=== PATIENT | female | born 1950 | race Caucasian/White ===

== ENCOUNTER 2018-08-07 08:35 | Inpatient (IN) | payer MEDICARE, OTHER ==
[~2018-08-07] VITALS: Ht 167.6 cm; Wt 58.1 kg
[2018-08-07] VITALS (35 sets, daily range): BP systolic 69–204; BP diastolic 37–101
[2018-08-07] MEDS ORDERED: NITROGLYCERIN 0.4 MG/TAB BOTTLE ONE (08:38)
--- NOTE | 2018-08-07 08:39 | NUR ---
KAREL 80 FROM SNF, D/T SOB, 6 SPRAYS NITRO GIVEN BY EMS, BS 28, D10 INFUSED, PT AWAKE, RESPONSIVE, SOB NOED W USE OF ACCESSORY MUSCLES. BILAT CRACKLES. TO ER BED 5, HOOKED TO BULKING MACHINE OPERATOR, DR RIVAS AT BEDSIDE, RT AT BEDSIDE.
[2018-08-07] MEDS ORDERED: ALBUTEROL FS 2.5 MG/3 ML VIAL.NEB ONE (08:42)
[2018-08-07] MEDS ORDERED: methylPREDNISolone SOD SUCC 125 MG/2ML VIAL ONE (08:43)
[2018-08-07] MEDS ORDERED: NTG 50 MG/D5W250 ML BOTTL 250 ML IV ONE ×2 (08:54→09:00)
[2018-08-07 08:58] LABS: BASOPHILS # (AUTO) 0.1 /CMM (0.0-0.2); BASOPHILS % (AUTO) 0.9 % (0.0-2.0); EOSINOPHILS % (AUTO) 2.6 % (0.0-6.0); HEMATOCRIT 33 % (33-45); HEMOGLOBIN 10.4 g/dL (11.5-14.8); LYMPHOCYTES # (AUTO) 2.8 /CMM (0.8-4.8); LYMPHOCYTES % (AUTO) 23.3 % (20.0-44.0); MEAN CORPUSCULAR HGB CONC 32 g/dl (31.0-36.0); MEAN CORPUSCULAR VOLUME 95 fL (82-100); MONOCYTES # (AUTO) 1.1 /CMM (0.1-1.30); MONOCYTES % (AUTO) 9.2 % (2.0-12.0); NEUTROPHILS # (AUTO) 7.7 /CMM (1.8-8.9); PLATELET COUNT (AUTO) 260 /CMM (150-450); RED BLOOD CELL COUNT(AUTO) 3.46 MIL/uL (4.0-5.2)
[2018-08-07] MEDS ORDERED: ALBUTEROL FS 2.5 MG/3 ML VIAL.NEB NEB ONE (09:00)
[2018-08-07] MEDS ORDERED: methylPREDNISolone SOD SUCC 125 MG/2ML VIAL IV ONE (09:00)
[2018-08-07] MEDS ORDERED: NITROGLYCERIN 0.4 MG/TAB BOTTLE SL ONE ×2 (09:00)
[2018-08-07] MEDS ORDERED: MORPHINE SULFATE INJ 4 MG/ML DISP.SYRIN ONE (09:02)
[2018-08-07] MEDS ORDERED: ONDANSETRON HCL/PF 4 MG/2 ML VIAL ONE (09:02)
--- NOTE | 2018-08-07 09:05 | NUR ---
RADIOLOGY AT BEDSIDE FOR XRAY.
[2018-08-07 09:07] LABS: CALCIUM, SERUM 8.4 mg/dL (8.5-10.1); CREATININE 4.5 mg/dL (0.6-1.3); POTASSIUM 4.3 mmol/L (3.5-5.1)
[2018-08-07 09:10] LABS: ABG BASE EXCESS -1.8 mmol/L; ABG PH 7.395 (7.350-7.450); COHb 0.6 % (0.5-1.5); MetHb 0.4 % (0.0-1.5); SITE, ABG Right Radial; VENT MODE, BG BIPAP 18/5 R16
[2018-08-07 09:20] LABS: ALBUMIN 2.6 g/dL (3.4-5.0); BILIRUBIN,DIRECT 0.1 mg/dL (0.0-0.2); BILIRUBIN,TOTAL 0.4 mg/dL (0.2-1.0); TOTAL PROTEIN, SERUM 5.9 g/dL (6.4-8.2)
[2018-08-07] MEDS ORDERED: MORPHINE SULFATE INJ 2 MG/ML DISP.SYRIN IV ONE (09:30)
[2018-08-07] MEDS ORDERED: ONDANSETRON HCL/PF - ER 4 MG/2 ML VIAL IV ONE (09:30)
--- NOTE | 2018-08-07 10:14 | NUR ---
CALLED [facility] ITS [facility]
[2018-08-07] MEDS ORDERED: CRAN500T PO (10:22)
[2018-08-07] MEDS ORDERED: SUCR1TAB PO (10:22)
[2018-08-07] MEDS ORDERED: FERR325T23 PO (10:22)
[2018-08-07] MEDS ORDERED: PANT40TA2 PO (10:22)
[2018-08-07] MEDS ORDERED: HYDR100T27 PO (10:22)
[2018-08-07] MEDS ORDERED: ASPI-1169 PO (10:22)
[2018-08-07] MEDS ORDERED: FOLI0.4T2 PO (10:22)
[2018-08-07] MEDS ORDERED: LOSA100T31 PO (10:22)
[2018-08-07] MEDS ORDERED: HYDR-4384 PO (10:22)
[2018-08-07] MEDS ORDERED: CARV25TA PO (10:22)
[2018-08-07] MEDS ORDERED: ATOR40TA PO (10:22)
[2018-08-07] MEDS ORDERED: BISA10SU61 RC (10:23)
[2018-08-07] MEDS ORDERED: MAGN400O6 PO (10:23)
[2018-08-07] MEDS ORDERED: ACET325T53 PO (10:23)
[2018-08-07] MEDS ORDERED: SENN-168 PO (10:23)
[2018-08-07] MEDS ORDERED: NA P133E RC (10:23)
[2018-08-07] MEDS ORDERED: FUROSEMIDE 40 MG/4 ML VIAL IV ONE (10:30)
[2018-08-07] MEDS ORDERED: FUROSEMIDE 20 MG/2 ML VIAL ONE (10:36)
[2018-08-07] MEDS ORDERED: FUROSEMIDE 40 MG/4 ML VIAL ONE (10:36)
--- NOTE | 2018-08-07 10:40 | NUR ---
PATIENT WILL GO TO ICU 252.
--- NOTE | 2018-08-07 11:02 | NUR ---
REPORT GIVEN TO INGRIS RIVERA OF ICU DEPT
--- NOTE | 2018-08-07 11:20 | NUR ---
REPORT RECEIVED FROM SHUBHAM RIVERA FROM ER; RECEIVED VIA [employer] Training[employer] ON NONREBRETHAER MASK; SWITCHED RIGHT AWAY TO BIPAP/FACEMASK BY RT 13/11 RATE OF 12 AT 50%; ON NTG DRIP; TRANSFERRED TO ICU; ORIENTED TO ICU ; USE OF CALL LIGHT, SPEAKS MOSTLY ANGOLAN AND SOME MAURITIAN WORDS
[2018-08-07] MEDS ORDERED: ZOLPIDEM TARTRATE 5 MG TABLET PO PRN (12:00)
[2018-08-07] MEDS ORDERED: MAGNESIUM HYDROXIDE 30 ML UDC PO PRN ×2 (12:00→14:00)
[2018-08-07] MEDS ORDERED: Z GUARD REMEDY 2 OZ OINT TP PRN (12:00)
[2018-08-07] MEDS ORDERED: ONDANSETRON HCL/PF 4 MG/2 ML VIAL IVP PRN (12:00)
--- NOTE | 2018-08-07 12:16 | NUR ---
RIGHT HAND P. IV MEDICAL RESIDENT; NO VISIBLE TRAGET VEINS FOR PERIPHERAL LINE INSERTION; MIDLINE IV ACCESS DONE ON LEFT UPPER ARM BY BARRETT AT BEDSIDE Addendum: 08/07/18 at 1334 by INGRIS RAMOS RN LEFT HAND P. IV LINE
[2018-08-07] MEDS: IPRATROPIUM NEB FS 0.5 MG/2.5 ML AMPUL.NEB NEB SCH ×4 (12:30→22:53)
[2018-08-07] MEDS: PANTOPRAZOLE 40 MG TABLET.DR PO SCH (12:46)
[2018-08-07] MEDS ORDERED: FEE PK DOSING 1 MIN EA MC ONE (12:46)
[2018-08-07] MEDS ORDERED: PIPERACILLIN /TAZOBACTAM 3.375 G in IV D5W 50 ML IV SCH (13:00)
[2018-08-07] MEDS ORDERED: methylPREDNISolone SOD SUCC 125 MG/2ML VIAL IV SCH (13:00)
[2018-08-07] MEDS ORDERED: VANCOMYCIN 500 MG in IV D5W 100 ML IV PRN (13:00)
[2018-08-07] MEDS ORDERED: PIPERACILLIN /TAZOBACTAM 2.25 G in IV D5W 50 ML IV SCH (13:00)
[2018-08-07] MEDS ORDERED: VANCOMYCIN 1 GM in IV D5W 250 ML IV ONE (13:00)
--- NOTE | 2018-08-07 13:49 | NUR ---
RT PATIENT CURRENTLY ON RESCUE BIPAP WITH NOTED MILD DISTRESS. UNABLE TO OBTAIN SPUTUM SAMPLE. PATIENT HAS NO SECRETIONS AND DRY MOUTH WITH DRY COUGH. B/S WHEEZES. RN NOTIFIED.
[2018-08-07] MEDS ORDERED: ACETAMINOPHEN 325 MG TABLET PO PRN (14:00)
[2018-08-07] MEDS ORDERED: NA PHOS,M-B/NA PHOS,DI-BA 1 EA ENEMA RC PRN (14:00)
[2018-08-07] MEDS: hydrALAZINE HCL 50 MG TABLET PO SCH ×2 (14:00→22:03)
[2018-08-07] MEDS ORDERED: BISACODYL SUPP (10 MG) 10 MG/SUPP.RECT SUPP.RECT RC PRN (14:00)
--- NOTE | 2018-08-07 14:03 | NUR ---
SEEN B DR MATTHEW AT BEDSIDE
--- NOTE | 2018-08-07 14:17 | NUR ---
UNABLE TO COLLECT SPUTUM AT THIS TIME; PT UNABLE TO EXPECTORATE 'FEELS DRY'
[2018-08-07] MEDS: ALBUTEROL HALF STRENGTH 1.25 MG/3 ML VIAL.NEB NEB SCH ×3 (15:21→22:53)
--- NOTE | 2018-08-07 15:33 | NUR ---
ECHOCARDIOGRAM AT BEDSIDE
[2018-08-07] MEDS ORDERED: ALBUMIN 25% 25 GM in PREMIX 1 EA IV PRN (16:00)
[2018-08-07] MEDS ORDERED: PANTOPRAZOLE 40 MG TABLET.DR PO SCH (16:30)
[2018-08-07] MEDS ORDERED: FUROSEMIDE 40 MG/4 ML VIAL IV SCH (17:00)
[2018-08-07] MEDS: FERROUS SULFATE (325 MG) 325 MG/TAB TABLET PO SCH (17:00)
[2018-08-07] MEDS: SUCRALFATE 1 G TABLET PO SCH (17:00)
--- NOTE | 2018-08-07 17:11 | NUR ---
SON IN LAW AT BEDSIDE; GIVEN UPDATES ; YOUNGEST DAUGHTER IS ACUTE SPECIALIST AT THIS TIME JULIO ALEXIS AT [phone]
--- NOTE | 2018-08-07 17:23 | NUR ---
PO MEDS CARAFATE AND FERROUS SULFATE NOT GIVEN AT THIS TIME BECAUSE OF NPO STATUS AND PRESENCE OF BIPAP
--- NOTE | 2018-08-07 18:05 | NUR ---
HEMODIALYSIS AT BEDSIDE C/O MIGUEL ANDERSON;
--- NOTE | 2018-08-07 18:15 | NUR ---
DR MATTHEW MADE AWARE OF BP AT 90S SYSTOLIC, WITH ORDER TO DC LASIX IV
--- NOTE | 2018-08-07 18:54 | NUR ---
HEMODIALYSIS ONGOING; TOLERATING HD, VS STABLE
--- NOTE | 2018-08-07 19:06 | NUR ---
HANDOFF REPORT AT BEDSIDE DONE WITH HOANG RIVERA
--- NOTE | 2018-08-07 19:30 | NUR ---
Received report and patient with ongoing HD at bedside.A/O X 3.VS stable.SR.Respiration even and unlabored.With O2 2L NC SPO2 94 %.Denies chest pain on sob.DMITRIY MIDLINE intact. Continue monitoring.
--- NOTE | 2018-08-07 20:00 | NUR ---
HD done.2700 ml out.Tolerated procedure well.
--- NOTE | 2018-08-07 20:30 | NUR ---
CXR post HD done pending result.
[2018-08-07] MEDS: methylPREDNISolone SOD SUCC 125 MG/2ML VIAL IV SCH (21:03)
[2018-08-07] MEDS: CARVEDILOL 12.5 MG TABLET PO SCH (21:03)
--- NOTE | 2018-08-07 22:00 | NUR ---
Patient verbalized she is hungry. notified with orders received.Snack served.Ate with good appetite.Incontinent of urine.Kept clean and dry.
[2018-08-07] MEDS: ATORVASTATIN 40 MG TABLET PO SCH (22:03)
[2018-08-07] MEDS: SENNOSIDES 8.6 MG TABLET PO SCH (22:03)
[2018-08-07] MEDS: HYDROCODONE/APAP 5/325MG 1 EACH TABLET PO PRN (22:40)
--- NOTE | 2018-08-07 22:40 | NUR ---
Patient complaints of left side chest pain.Pain medication administered.Continue to monitor.
--- NOTE | 2018-08-07 23:40 | NUR ---
Patient dozing on and off.Verbalized pain relief.VS stable.Continue monitoring.
[2018-08-08] VITALS (22 sets, daily range): BP systolic 81–142; BP diastolic 44–100
[2018-08-08] MEDS: IPRATROPIUM NEB FS 0.5 MG/2.5 ML AMPUL.NEB NEB SCH ×6 (03:30→22:47)
[2018-08-08] MEDS: ALBUTEROL HALF STRENGTH 1.25 MG/3 ML VIAL.NEB NEB SCH ×6 (03:30→22:47)
--- NOTE | 2018-08-08 04:40 | NUR ---
visiting patient.Updates given as to BP, chest pain and EKG.No new orders received.
[2018-08-08] MEDS: methylPREDNISolone SOD SUCC 125 MG/2ML VIAL IV SCH (05:00)
[2018-08-08] MEDS: hydrALAZINE HCL 50 MG TABLET PO SCH (06:00)
--- NOTE | 2018-08-08 06:00 | NUR ---
Patient resting appears comfortable.VS stable.SR .No new complaints presented.
[2018-08-08 06:14] LABS: BASOPHILS % (AUTO) 0.3 % (0.0-2.0); HEMATOCRIT 27 % (33-45); HEMOGLOBIN 8.8 g/dL (11.5-14.8); LYMPHOCYTES % (AUTO) 9.6 % (20.0-44.0); MEAN CORPUSCULAR HGB CONC 33 g/dl (31.0-36.0); MEAN CORPUSCULAR VOLUME 93 fL (82-100); MONOCYTES % (AUTO) 2.9 % (2.0-12.0); NEUTROPHILS % (AUTO) 87.2 % (43.0-81.0); PLATELET COUNT (AUTO) 187 /CMM (150-450); RED BLOOD CELL COUNT(AUTO) 2.85 MIL/uL (4.0-5.2); WHITE BLOOD COUNT (AUTO) 7.8 K/uL (4.3-11.0)
[2018-08-08 06:15] LABS: THYROID STIMULATING HORMONE 2.954 uIU/mL (0.358-3.74)
[2018-08-08 06:15] LABS: LYMPHOCYTES # (AUTO) 0.8 /CMM (0.8-4.8); MONOCYTES # (AUTO) 0.2 /CMM (0.1-1.30); NEUTROPHILS # (AUTO) 6.8 /CMM (1.8-8.9)
[2018-08-08 06:54] LABS: POTASSIUM 4.5 mmol/L (3.5-5.1)
[2018-08-08 06:55] LABS: CALCIUM, SERUM 9.1 mg/dL (8.5-10.1); CREATININE 3.8 mg/dL (0.6-1.3)
[2018-08-08 06:56] LABS: MAGNESIUM 2.4 mg/dL (1.8-2.4); PHOSPHORUS 3.9 mg/dL (2.5-4.9)
[2018-08-08] MEDS: FOLIC ACID 1 MG TABLET PO SCH (08:18)
[2018-08-08] MEDS: SUCRALFATE 1 G TABLET PO SCH ×2 (08:18→17:42)
[2018-08-08] MEDS: FERROUS SULFATE (325 MG) 325 MG/TAB TABLET PO SCH ×2 (08:18→17:42)
[2018-08-08] MEDS: ASPIRIN 81 MG TAB.CHEW PO SCH (08:18)
[2018-08-08] MEDS: PANTOPRAZOLE 40 MG TABLET.DR PO SCH (08:18)
[2018-08-08 08:49] LABS: ALBUMIN 3.2 g/dL (3.4-5.0); BILIRUBIN,DIRECT 0.2 mg/dL (0.0-0.2); BILIRUBIN,TOTAL 0.6 mg/dL (0.2-1.0); TOTAL PROTEIN, SERUM 6.1 g/dL (6.4-8.2)
[2018-08-08] MEDS ORDERED: LOSARTAN POTASSIUM 50 MG TABLET PO SCH ×2 (09:00)
[2018-08-08] MEDS: CARVEDILOL 12.5 MG TABLET PO SCH (09:00)
[2018-08-08] MEDS ORDERED: DEXTROSE 50%-WATER 50 ML DISP.SYRIN IV PRN (09:00)
--- NOTE | 2018-08-08 09:20 | NUR ---
RN NOTE 0715: Received patient awake, A/Ox3, Persian speaking, aware for the POC. on 2LPM of O2 via NC tolerated, no any respiratory distress noted at this time. With DMITRIY midline intact. RCW HD cath intact. SR 80-90's on the monitor. 0830: HD nurse at bedside. S/E by Dr. Zee, with order to may transfer patient to Tele after HD, made CN aware. 0920: HD ongoing, tolerated at this time. Diet tolerated.
--- NOTE | 2018-08-08 10:57 | NUR ---
RN NOTE 1015: Done with HD, patient tolerated well. Held BP meds for SBP 90's and low 100's. 1055: No any significant changes.
--- NOTE | 2018-08-08 11:30 | NUR ---
RN NOTES RECEIVED FROM ICU IN ROOM 113-1 , A/OX4, UKRAINIAN SPEAKING , ON 3L O2 N/C , NO DISTRESS NOTED AT THIS TIME, ON TELE SR , L UPPER ARM MIDLINE AND R CW HD CATH SITES , CLEAN, DRY AND INTACT, SR UP x3, CALL LIGHT WITHIN EASY REACH, BED LOCKED AND IN LOWEST POSITION, CONTINUE TO MONITOR .
[2018-08-08] MEDS ORDERED: NITROGLYCERIN 4.9 GM SPRAY SL ONE (13:00)
[2018-08-08] MEDS ORDERED: VERAPAMIL HCL IV 5 MG/2 ML VIAL IV ONE (13:00)
[2018-08-08] MEDS ORDERED: IV NS 0.9% 500 ML IV PRN (13:00)
--- NOTE | 2018-08-08 13:00 | NUR ---
COMBINATION SAW OPERATOR ASSESS PT IN ROOM AOX4 PT VS 83/[address] KRISTI MD ADVISED TO HOLD TEST WE CANNOT SAFELY LOWER HR CLOSE TO 60S IN ORDER TO HAVE A SUCCESSFUL TEST. CONTACTED DR. ISAAC Arteaga AND NOTIFIED MD REGARDING FINDINGS. OTHER THAN THAT PT IS STABLE EATING LUNCH BP IS ASYMPTOMATIC.
[2018-08-08] MEDS: BLOOD SUGAR DIAGNOSTIC 1 EACH STRIP VI SCH ×3 (13:49→21:28)
[2018-08-08] MEDS: INSULIN REGULAR, HUMAN 100 UNIT/ML 3 ML VIAL SQ PRN ×2 (13:52→17:41)
[2018-08-08] MEDS ORDERED: methylPREDNISolone SOD SUCC 125 MG/2ML VIAL IV SCH (17:00)
--- NOTE | 2018-08-08 17:00 | NUR ---
RN NOTES PT C/O SOB , ON 3L O2 N/C O2 SAT 95%, DR MATTHEW NOTIFED, BREATHING TX ORDERED .CONTINUE TO MONITOR
[2018-08-08] MEDS: METOPROLOL SUCCINATE 25 MG TAB.SR.24H PO SCH (17:43)
--- NOTE | 2018-08-08 18:17 | NUR ---
RN NOTES PT STILL C/O SOB, ANXIOUS , AND WHEEZING , AND STATED CANT NOT BEATH, HR IN 130'S , O2 SAT 87%. DR. MATTHEW NOTIFED, NEW ORDER RECEIVED FOR SOLUMEDRAL 40 MG IV x1 AND XANAX .5MG PO .
[2018-08-08] MEDS ORDERED: methylPREDNISolone SOD SUCC 40 MG/ML VIAL IV ONE (18:35)
[2018-08-08] MEDS: ALPRAZOLAM 0.25 MG TABLET PO PRN (18:37)
--- NOTE | 2018-08-08 18:45 | NUR ---
RN NOTES HR IN 150"S, PT STILL WHEEZING AND HAS BLOODY TINGED SPUTUM , O2 SAT 88% ON 5L O2 N/C , PT VERY ANXIOUS AND RESTLESS, DR. MATTHEW PAGED AND NOTIFED, ORDER RECEIVED TO TRANSFER PT BACK TO ICU FOR BIPAP . NURSING SENIOR BEHAVIORAL SCIENTIST NOTIFIED.
[2018-08-08] MEDS ORDERED: LEVOFLOXACIN 500 MG /D5W 100ML 500 MG in PREMIX 1 EA IV SCH (19:00)
--- NOTE | 2018-08-08 19:03 | NUR ---
THERAPIST WAS CALLED TO BEDSIDE IN [facility], PT WAS FOUND IN RESPIRATORY DISTRESS TACHYPNEIC WITH SATURATION OF 82% ON NC 3LPM, PT WAS PLACED ON NON REBREATHER AND TRANSFERRED TO ICU. PT COUGHED UP MODERATE AMOUNT OF FROTHY PINK SECRETIONS, RALES BREATH SOUNDS PRESENT. PT WAS PLACED ON BIPAP AND ON SAME SETTING FROM PREVIOUS NIGHT. PT TOLERATING SETTING AND IMPROVING. SKIN BARRIER APPLIED ON BRIDGE OF NOSE, MIGUEL BRANDT. Addendum: 08/08/18 at 2002 by GRZEGORZ CISNEROS RT Amended: Links added.
--- NOTE | 2018-08-08 19:20 | NUR ---
RN NOTES PT TRANSFERRED TO ICU ROOM 254 VIA ACLS PROTOCOL .
--- NOTE | 2018-08-08 19:25 | NUR ---
ANIMAL CARETAKER SUPERVISOR: RECEIVED PT FROM TELE FOR RESCUE BIPAP. BIPAP SETTINGS ORDERED WT O2 SAT ABOVE 96%. PT IS RESTLESS AND ABLE TO MAKE NEEDS KNOWN MOSTLY IN [place]. ST ON REMOTE MORTGAGE UNDERWRITER WT BBB AND HIGH RR. AFEBRILE. PLACED ON HIGH MAYER'S POSITION. SAFETY PRECAUTION NOTED. CALL LIGHT KEPT WITHIN REACH. WILL CONTINUE TO MONITOR.
[2018-08-08] MEDS: LEVOFLOXACIN 500 MG /D5W 100ML 500 MG in PREMIX 1 EA IV SCH (20:23)
[2018-08-08] MEDS: SENNOSIDES 8.6 MG TABLET PO SCH (21:12)
[2018-08-08] MEDS: ATORVASTATIN 40 MG TABLET PO SCH (21:12)
[2018-08-08] MEDS: HYDROCODONE/APAP 5/325MG 1 EACH TABLET PO PRN (21:13)
[2018-08-08] MEDS: *INSULIN REGULAR(HUMULIN R)HUM 100 UNIT/ML VIAL SQ PRN (21:30)
[2018-08-09] VITALS (28 sets, daily range): BP systolic 96–145; BP diastolic 62–99
--- NOTE | 2018-08-09 | NUR ---
COUNTER CONTROL OPERATOR: BIPAP TOLERATING FAIRLY WT EPISODES OF RESTLESSNESS. GIVEN NORCO FOR GEN. PAIN (8/10) WT GOOD EFFECT AFTER AN HOUR (0/10). FI02 DECREASED TO 45%.
[2018-08-09] MEDS: methylPREDNISolone SOD SUCC 40 MG/ML VIAL IV SCH ×5 (00:53→23:14)
[2018-08-09] MEDS: IPRATROPIUM NEB FS 0.5 MG/2.5 ML AMPUL.NEB NEB SCH ×7 (03:25→23:07)
[2018-08-09] MEDS: ALBUTEROL HALF STRENGTH 1.25 MG/3 ML VIAL.NEB NEB SCH ×7 (03:25→23:07)
[2018-08-09] MEDS: HYDROCODONE/APAP 5/325MG 1 EACH TABLET PO PRN ×2 (04:28→23:14)
--- NOTE | 2018-08-09 04:30 | NUR ---
TRANSITION MANAGER: PT VERBALIZED GEN. PAIN (02/08). GIVEN NORCO ORDERED. FAMILY AT BEDSIDE AND PT REFUSED USE OF BIPAP. EXPLAINED RISKS AND BENEFITS, SON SAID JUST FOR A SHORT TIME OR IF SHE TOLERATES OFF BIPAP. PLACED ON 4L 02 VIA NC WT 02 SAT AT 96%. WILL CONTINUE TO MONITOR.
[2018-08-09 04:52] LABS: BASOPHILS % (AUTO) 0.2 % (0.0-2.0); HEMATOCRIT 27 % (33-45); HEMOGLOBIN 8.7 g/dL (11.5-14.8); LYMPHOCYTES # (AUTO) 0.5 /CMM (0.8-4.8); LYMPHOCYTES % (AUTO) 3.6 % (20.0-44.0); MEAN CORPUSCULAR HGB CONC 33 g/dl (31.0-36.0); MEAN CORPUSCULAR VOLUME 93 fL (82-100); MONOCYTES # (AUTO) 0.3 /CMM (0.1-1.30); MONOCYTES % (AUTO) 2.5 % (2.0-12.0); NEUTROPHILS # (AUTO) 12.5 /CMM (1.8-8.9); NEUTROPHILS % (AUTO) 93.7 % (43.0-81.0); PLATELET COUNT (AUTO) 171 /CMM (150-450); RED BLOOD CELL COUNT(AUTO) 2.86 MIL/uL (4.0-5.2); WHITE BLOOD COUNT (AUTO) 13.4 K/uL (4.3-11.0)
[2018-08-09 05:04] LABS: MAGNESIUM 2.3 mg/dL (1.8-2.4); PHOSPHORUS 4.8 mg/dL (2.5-4.9)
--- NOTE | 2018-08-09 06:30 | NUR ---
INDUSTRIAL ORGANIZATIONAL PSYCHOLOGIST: REMAINS A/O X 3. STILL AT 4L 02 VIA NC WT O2 SAT BET. 94%-96%. REMAINS CALM AND COOPERATIVE. SAFETY PRECAUTION NOTED AT ALL TIMES.
--- NOTE | 2018-08-09 07:10 | NUR ---
RN INITIAL NOTES RECEIVED PT AWAKE, A/0X3. TURKISH SPEAKING. ON 02 AT 4LPM VIA NC. HOB ELEVATED. NO RESPIRATORY DISTRESS NOTED. DENIES ANY PAIN. DMITRIY MIDLINE IN PLACE. PT CLEAN AND DRY. PT COMFORTABLE. CALL LIGHT WITHIN REACH. WILL MONITOR.
--- NOTE | 2018-08-09 08:11 | NUR ---
WOUND CARE CONSULT: PT PRESENTS WITH PERINEAL RASH, PRESENT ON ADMISSION. RECOMMENDATIONS MADE FOR SKIN PROTECTION AND SKIN CARE. DISCUSSED WITH NURSING STAFF. PT ABLE TO ASSIST WITH TURNING AND REPOSITIONING IN BED. WILL SEE PRN. MCLEOD IN AGREEMENT WITH PLAN OF CARE. CURRENT DEREJE SCORE IS 16. Addendum: 08/09/18 at 0813 by MARILYN ROTH WNDNU Amended: Links added.
[2018-08-09] MEDS: SUCRALFATE 1 G TABLET PO SCH ×2 (08:20→17:20)
[2018-08-09] MEDS: FOLIC ACID 1 MG TABLET PO SCH (08:20)
[2018-08-09] MEDS: FERROUS SULFATE (325 MG) 325 MG/TAB TABLET PO SCH ×2 (08:20→17:20)
[2018-08-09] MEDS: PANTOPRAZOLE 40 MG TABLET.DR PO SCH (08:20)
[2018-08-09] MEDS: ASPIRIN 81 MG TAB.CHEW PO SCH (08:20)
[2018-08-09] MEDS: METOPROLOL SUCCINATE 25 MG TAB.SR.24H PO SCH ×2 (08:21→17:20)
[2018-08-09] MEDS: BLOOD SUGAR DIAGNOSTIC 1 EACH STRIP VI SCH ×4 (08:22→21:31)
--- NOTE | 2018-08-09 09:00 | NUR ---
RN NOTES 0845 SEEN AND EXAMINED BY DR MATTHEW. AWARE OF CURRENT LAB WORKS AND IMAGING RESULT. PT ON VIA NC AT 4LPM. NO SOB NOTED. PT FOR CTA TO R/O DISSECTION. WILL MONITOR 0900 SEEN AND EXAMINED BY DR KELLER. PT ON VIA NE. KEPT HOB ELEVATED. NO SOB NOTED. WILL MONITOR
[2018-08-09 11:08] LABS: ABG BASE EXCESS -0.5 mmol/L; ABG OXYGEN SATURATION 90.6 % (92.0-98.5); ABG PCO2 28.8 mmHg (35.0-45.0); ABG PH 7.501 (7.350-7.450); ABG PO2 58.3 mmHg (75.0-100.0); AaDO2 143.4 mmHg; COHb 0.9 % (0.5-1.5); MetHb 0.8 % (0.0-1.5); O2Hb 89.1 % (94.0-97.0); SITE, ABG Left Radial; VENT MODE, BG NASAL CANNULA
[2018-08-09] MEDS ORDERED: IOHEXOL-350 100 ML VIAL IV ONE (13:32)
--- NOTE | 2018-08-09 13:50 | NUR ---
ICU/RN: Case DW by RN with Dr Cheung, per MD unable to perform cardiac exam due to pt Hx and comorbidities, total of 3mg Verapamil HCL IVP administered with no effect to heart rate. However "ok to perform CTA Chest for dissection." Will notify primary RN, Dr Zee.
[2018-08-09] MEDS ORDERED: EPOETIN ALFA (10,000 UNIT) 10,000 UNIT/ML VIAL IV ONE (15:00)
[2018-08-09] MEDS: CLOTRIMAZOLE 1% 15 GM TUBE TP SCH ×2 (15:13→17:20)
[2018-08-09] MEDS: INSULIN REGULAR, HUMAN 100 UNIT/ML 3 ML VIAL SQ PRN (17:42)
--- NOTE | 2018-08-09 18:17 | NUR ---
ENDING REMAINS A/O X 3. STILL AT 4L 02 VIA NC WT O2 SAT BET. 94%-96%. REMAINS CALM AND COOPERATIVE. SAFETY PRECAUTION NOTED AT ALL TIMES. PT WENT TO CT ANGIO TODAY RESTARTED RENAL DIET ENDORSE CARE TO PM SHIFT FOR CONTINUITY OF CARE
--- NOTE | 2018-08-09 19:30 | NUR ---
INSIDE WIRER: RECEIVED A/O X 3. ON 4L O2 VIA NC WT NO ACUTE DISTRESS. NO C/O PAIN. MID LINE IN PLACE WT NO S/S OF INFILTRATION. RT. CW HD CATH INTACT. SR WT BBB. ANURIC. SAFETY PRECAUTION NOTED. CALL LIGHT KEPT WITHIN REACH.
[2018-08-09] MEDS: SENNOSIDES 8.6 MG TABLET PO SCH (21:23)
[2018-08-09] MEDS: ATORVASTATIN 40 MG TABLET PO SCH (21:23)
[2018-08-09] MEDS: *INSULIN REGULAR(HUMULIN R)HUM 100 UNIT/ML VIAL SQ PRN (21:32)
[2018-08-10] VITALS (25 sets, daily range): BP systolic 83–147; BP diastolic 51–115
[2018-08-10] MEDS: IPRATROPIUM NEB FS 0.5 MG/2.5 ML AMPUL.NEB NEB SCH ×5 (02:42→20:14)
[2018-08-10] MEDS: ALBUTEROL HALF STRENGTH 1.25 MG/3 ML VIAL.NEB NEB SCH ×5 (02:43→20:14)
[2018-08-10] MEDS: ALPRAZOLAM 0.25 MG TABLET PO PRN (03:13)
--- NOTE | 2018-08-10 04:15 | NUR ---
LEAD CUSTODIAN: REASSESSED AFTER GIVEN XANAX WT GOOD EFFECT. PT ASLEEP AT THIS TIME WT NO EPISODE OF RESTLESSNESS/ANXIETY. WILL CONTINUE TO MONITOR.
[2018-08-10] MEDS: methylPREDNISolone SOD SUCC 40 MG/ML VIAL IV SCH ×3 (06:18→17:14)
[2018-08-10] MEDS: BLOOD SUGAR DIAGNOSTIC 1 EACH STRIP VI SCH ×4 (07:51→21:55)
[2018-08-10] MEDS: PANTOPRAZOLE 40 MG TABLET.DR PO SCH (07:54)
[2018-08-10] MEDS: SUCRALFATE 1 G TABLET PO SCH ×2 (08:10→16:49)
[2018-08-10] MEDS: ASPIRIN 81 MG TAB.CHEW PO SCH (08:10)
[2018-08-10] MEDS: FERROUS SULFATE (325 MG) 325 MG/TAB TABLET PO SCH ×2 (08:10→16:49)
[2018-08-10] MEDS: FOLIC ACID 1 MG TABLET PO SCH (08:10)
[2018-08-10] MEDS: METOPROLOL SUCCINATE 25 MG TAB.SR.24H PO SCH ×2 (08:11→16:49)
[2018-08-10] MEDS: INSULIN REGULAR, HUMAN 100 UNIT/ML 3 ML VIAL SQ PRN ×3 (08:14→16:59)
[2018-08-10] MEDS: CLOTRIMAZOLE 1% 15 GM TUBE TP SCH ×2 (08:21→18:14)
[2018-08-10 08:37] LABS: BASOPHILS % (AUTO) 0.1 % (0.0-2.0); HEMATOCRIT 27 % (33-45); HEMOGLOBIN 8.9 g/dL (11.5-14.8); LYMPHOCYTES # (AUTO) 0.7 /CMM (0.8-4.8); LYMPHOCYTES % (AUTO) 10.7 % (20.0-44.0); MEAN CORPUSCULAR HGB CONC 33 g/dl (31.0-36.0); MEAN CORPUSCULAR VOLUME 93 fL (82-100); MONOCYTES # (AUTO) 0.6 /CMM (0.1-1.30); MONOCYTES % (AUTO) 9.3 % (2.0-12.0); NEUTROPHILS # (AUTO) 5.2 /CMM (1.8-8.9); NEUTROPHILS % (AUTO) 79.9 % (43.0-81.0); PLATELET COUNT (AUTO) 153 /CMM (150-450); RED BLOOD CELL COUNT(AUTO) 2.91 MIL/uL (4.0-5.2); WHITE BLOOD COUNT (AUTO) 6.5 K/uL (4.3-11.0)
[2018-08-10 08:43] LABS: CALCIUM, SERUM 9.1 mg/dL (8.5-10.1); CREATININE 3.4 mg/dL (0.6-1.3); POTASSIUM 4.3 mmol/L (3.5-5.1)
--- NOTE | 2018-08-10 10:15 | NUR ---
ICU/RN: S/P HD; 1.5L out, tolerated well. All needs attended to, will cont to monitor pt.
--- NOTE | 2018-08-10 11:30 | NUR ---
ICU/RN: Dr Andrea at bedside; updated on pt status, s/p HD. Informed of pt c/o itching, per MD, unlikely to be allergic reaction, pt on IV solumedrol. Orders for Benadryl noted and carried out. Pt in agreement with plan.
[2018-08-10] MEDS: diphenhydrAMINE HCL ELIX 25 MG/10 ML UDC PO PRN (11:41)
--- NOTE | 2018-08-10 15:10 | NUR ---
HOUSESMITH NOTES RECEIVED PATIENT VIA GURNEY FROM ICU. A&OX4 TRISTANIAN SPEAKING WITH A LITTLE MOROCCAN. ON TELE MONITOR SR HR 91. VS 140/64 98% ON 2L NC 97.3F 16. HAS A L UPPER ARM MIDLINE AND HD CATH ON RIGHT CHEST WALL. SKIN IS INTACT, HAS PERINEAL RASH. LEFT FEET SWOLLEN. SAFETY PRECAUTIONS IN PLACED. ORIENTED TO ROOM AND CALL LIGHT. BED LOCKED AND LOWEST POSITION WITH 2 SIDE RAILS UP. CALL LIGHT WITHIN REACH.
--- NOTE | 2018-08-10 15:10 | NUR ---
ICU/RN: Pt transferred to [facility] via ACLS protocol. Pt denies discomfort. Placed on classroom monitor. VSS. Bedside report given to RN for REBECCA.
[2018-08-10] MEDS: HYDROCODONE/APAP 5/325MG 1 EACH TABLET PO PRN (15:24)
--- NOTE | 2018-08-10 19:07 | NUR ---
RN CLOSING NOTE PATIENT AWAKE AND ALERT. ATE HER DINNER 100%. IV ON LEFT UPPER ARM MID LINE INTACT PATENT AND SALINE FLUSHED. ON TELE MONITOR SR HR 88. ON O2 2L NC. NO SIGNS OF DISTRESS. NO COMPLAINTS OF ANY PAIN. BED LOCKED AND ON LOWEST POSITION. CALL LIGHT WITHIN REACH. ENDORSED TO NOC SHIFT.
--- NOTE | 2018-08-10 19:15 | NUR ---
[facility]/FILM PRINTER RECEIVED REPORT FROM DAY NURSE. PT IS ALERT X 3, CITIZEN OF [place] SPEAKING WITH SOME BROKEN M[place]K. PT IS CURRENTLY ON 3 LITERS VIA N/C WITH NO SOB NOTED. PT HAS NO SKIN ISSUES TO DISCUSS, EXCEPT SOME ELSA REDNESS AND SKIN TEARS. PT DOES HAVE LEFT UPPER ML HEPLOCK THAT ABLE TO FLUSH WELL. PT IS CURRENTLY ON THE TELEY BOX. CALL LIGHT WITHIN REACH, NO ACUTE DISTRESS SEEN.
[2018-08-10] MEDS: LEVOFLOXACIN 500 MG /D5W 100ML 500 MG in PREMIX 1 EA IV SCH (20:11)
--- NOTE | 2018-08-10 21:20 | NUR ---
[facility]/BILLING COORDINATOR PT WAS ASSISTED TO BEDSIDE COMMODE WHERE PT HAD A LARGE BM. PT WAS ASSISTED BACK TO BED WITH A DIAPER. CALL LIGHT PLACED WITHIN REACH. NO ACUTE DISTRESS SEEN AT THIS TIME.
[2018-08-10] MEDS: SENNOSIDES 8.6 MG TABLET PO SCH (21:49)
[2018-08-10] MEDS: ATORVASTATIN 40 MG TABLET PO SCH (21:49)
[2018-08-10] MEDS: *INSULIN REGULAR(HUMULIN R)HUM 100 UNIT/ML VIAL SQ PRN (22:11)
--- NOTE | 2018-08-10 22:15 | NUR ---
[facility]/FIELD CROP FARMWORKER PM ACCU CHECK WAS DONE WHICH WAS 305, THIS WAS COVERED WITH MODERATE SCALE OF 8 UNITS REGULAR INSULIN SQ. WILL CONTINUE TO MONITOR THIS PT'S SUGAR ORDERED BY .
[2018-08-11] VITALS (8 sets, daily range): BP systolic 114–143; BP diastolic 53–92
[2018-08-11] MEDS: ALBUTEROL HALF STRENGTH 1.25 MG/3 ML VIAL.NEB NEB SCH ×5 (00:08→15:56)
[2018-08-11] MEDS: IPRATROPIUM NEB FS 0.5 MG/2.5 ML AMPUL.NEB NEB SCH ×5 (00:08→15:56)
[2018-08-11] MEDS: methylPREDNISolone SOD SUCC 40 MG/ML VIAL IV SCH ×2 (00:39→06:08)
[2018-08-11] MEDS: PANTOPRAZOLE 40 MG TABLET.DR PO SCH (06:09)
[2018-08-11] MEDS: BLOOD SUGAR DIAGNOSTIC 1 EACH STRIP VI SCH ×3 (06:13→17:41)
[2018-08-11] MEDS: INSULIN REGULAR, HUMAN 100 UNIT/ML 3 ML VIAL SQ PRN ×2 (06:18→12:04)
[2018-08-11 08:10] LABS: HEMATOCRIT 25 % (33-45); HEMOGLOBIN 8.3 g/dL (11.5-14.8); LYMPHOCYTES # (AUTO) 0.6 /CMM (0.8-4.8); LYMPHOCYTES % (AUTO) 9.3 % (20.0-44.0); MEAN CORPUSCULAR HGB CONC 33 g/dl (31.0-36.0); MEAN CORPUSCULAR VOLUME 92 fL (82-100); MONOCYTES # (AUTO) 0.6 /CMM (0.1-1.30); MONOCYTES % (AUTO) 8.7 % (2.0-12.0); NEUTROPHILS # (AUTO) 5.6 /CMM (1.8-8.9); PLATELET COUNT (AUTO) 138 /CMM (150-450); RED BLOOD CELL COUNT(AUTO) 2.71 MIL/uL (4.0-5.2); WHITE BLOOD COUNT (AUTO) 6.8 K/uL (4.3-11.0)
[2018-08-11 08:31] LABS: CALCIUM, SERUM 8.6 mg/dL (8.5-10.1); CREATININE 4.5 mg/dL (0.6-1.3); MAGNESIUM 2.1 mg/dL (1.8-2.4); PHOSPHORUS 4.7 mg/dL (2.5-4.9); POTASSIUM 3.9 mmol/L (3.5-5.1)
--- NOTE | 2018-08-11 09:00 | NUR ---
PT AOX4, VSS, ASSISTED WITH AM MEDS AND NUTRITION. DR MATTHEW HERE TO SEE PT OK TO D/C HOME.
[2018-08-11] MEDS: FOLIC ACID 1 MG TABLET PO SCH (09:56)
[2018-08-11] MEDS: SUCRALFATE 1 G TABLET PO SCH ×2 (09:56→17:30)
[2018-08-11] MEDS: FERROUS SULFATE (325 MG) 325 MG/TAB TABLET PO SCH ×2 (09:56→17:31)
[2018-08-11] MEDS: ASPIRIN 81 MG TAB.CHEW PO SCH (09:56)
[2018-08-11] MEDS: CLOTRIMAZOLE 1% 15 GM TUBE TP SCH ×2 (09:57→17:32)
[2018-08-11] MEDS: METOPROLOL SUCCINATE 25 MG TAB.SR.24H PO SCH ×2 (09:57→17:30)
[2018-08-11] MEDS: HYDROCODONE/APAP 5/325MG 1 EACH TABLET PO PRN (10:35)
[2018-08-11] MEDS ORDERED: LEVO750T21 PO (10:37)
[2018-08-11] MEDS ORDERED: PRED20TA PO (10:37)
[2018-08-11] MEDS ORDERED: ALBUT2 NEB (10:37)
[2018-08-11] MEDS ORDERED: methylPREDNISolone SOD SUCC 40 MG/ML VIAL IV SCH (14:00)
--- NOTE | 2018-08-11 16:48 | NUR ---
RN NOTE RECEIVED PATIENT FROM NURSE, TRANSFER WITHIN UNIT. OK TO DISCHARGE PER MD ORDER. TRANSPORT WILL BE HERE AFTER 6PM TODAY. PATIENT ALERT ORIENTED X3 ENGLISH SPEAKING. CONTINUE TO MONITOR.
--- NOTE | 2018-08-11 18:24 | NUR ---
RN CLOSING / TRANSFER NOTE PATIENT OK TO TRANSFER TO FACILITY. ALERT AND ORIENTED X3, QATARI SPEAKING. LEFT UPPER MIDLINE PATENT AND INTAC,T HD DONE THIS EVENING REMOVED 2800. 2 BM THIS SHIFT. VITALS WNL . CONTINUE TRANSFER TO FACILITY PER MD ORDER.S
[2018-08-11] MEDS: diphenhydrAMINE HCL ELIX 25 MG/10 ML UDC PO PRN (18:57)
== END 2018-08-11 19:07 | DRG 193 ==
LOC: ER 08:38 → ICU 10:53 → TELE1 08-08 11:10 → ICU 08-08 19:19 → TELE-TD 08-10 15:00 → TELE1 08-11 10:32
PROVIDERS: ADMIT Internal Medicine; ATTEND Internal Medicine
PROC: 5A1D70Z Performance of Urinary Filtration, Intermittent, Less than 6 Hours Per Day (ICD-10-PCS; principal; 2018-08-07)
PROC: 05H633Z Insertion of Infusion Device into Left Subclavian Vein, Percutaneous Approach (ICD-10-PCS; 2018-08-07)
PROC: 5A09357 Assistance with Respiratory Ventilation, Less than 24 Consecutive Hours, Continuous Positive Airway Pressure (ICD-10-PCS; 2018-08-07)
PROC: 5A1D70Z Performance of Urinary Filtration, Intermittent, Less than 6 Hours Per Day (ICD-10-PCS; 2018-08-08)
PROC: 5A09357 Assistance with Respiratory Ventilation, Less than 24 Consecutive Hours, Continuous Positive Airway Pressure (ICD-10-PCS; 2018-08-08)
PROC: 5A1D70Z Performance of Urinary Filtration, Intermittent, Less than 6 Hours Per Day (ICD-10-PCS; 2018-08-09)
PROC: 5A1D70Z Performance of Urinary Filtration, Intermittent, Less than 6 Hours Per Day (ICD-10-PCS; 2018-08-10)
PROC: 5A1D70Z Performance of Urinary Filtration, Intermittent, Less than 6 Hours Per Day (ICD-10-PCS; 2018-08-11)
DX: J15.9 Unspecified bacterial pneumonia (principal); J96.01 Acute respiratory failure with hypoxia; N18.6 End stage renal disease; I13.2 Hypertensive heart and chronic kidney disease with heart failure and with stage 5 chronic kidney disease, or end stage renal disease; E87.1 Hypo-osmolality and hyponatremia; J44.0 Chronic obstructive pulmonary disease with (acute) lower respiratory infection; J44.1 Chronic obstructive pulmonary disease with (acute) exacerbation; I16.1 Hypertensive emergency; E11.22 Type 2 diabetes mellitus with diabetic chronic kidney disease; D63.1 Anemia in chronic kidney disease; E78.5 Hyperlipidemia, unspecified; E83.51 Hypocalcemia; E88.09 Other disorders of plasma-protein metabolism, not elsewhere classified; F17.210 Nicotine dependence, cigarettes, uncomplicated; I25.10 Atherosclerotic heart disease of native coronary artery without angina pectoris; K21.9 Gastro-esophageal reflux disease without esophagitis; Z87.440 Personal history of urinary (tract) infections; Z99.2 Dependence on renal dialysis; I50.9 Heart failure, unspecified; L29.9 Pruritus, unspecified; Z87.11 Personal history of peptic ulcer disease; I25.2 Old myocardial infarction; Z79.82 Long term (current) use of aspirin
CPT/HCPCS: 36415; 36569; 36600; 71045-TC; 80048-TC; 80061-TC; 80076-TC; 82803-TC; 82962-TC; 83735-TC; 83880; 84100-TC; 84443-TC; 84484-TC; 85025-TC; 85730-TC; 87070-TC; 87081-TC; 90935-TC; 93307-TC; 94799-TC; A4216; G0378; J0885; J1815; J1940; J1956; J2270; J2405; J2543; J2920; J2930; J3370; J3490; J7060; P9047; Q0163; Q9967

== ENCOUNTER 2018-08-20 21:17 | Inpatient (IN) | payer OTHER ==
[~2018-08-20] VITALS: Ht 157.5 cm; Wt 65.3 kg
[~2018-08-20 21:17] MED LIST: ACET325T53 PO; ALBUT2 NEB; ASPI-1169 PO; ATOR40TA PO; BISA10SU61 RC; CARV25TA PO; CRAN500T PO; FERR325T23 PO; FOLI0.4T2 PO; HYDR-4384 PO; HYDR100T27 PO; LEVO750T21 PO; LOSA100T31 PO; MAGN400O6 PO; NA P133E RC; PANT40TA2 PO; PRED20TA PO; SENN-168 PO; SUCR1TAB PO
--- NOTE | 2018-08-20 21:55 | NUR ---
PT BBPA FR FOUR SEASONS C/C LLQ ABD PAIN RADIATING TO RLQ X "FEW DAYS".-N/V/D, PT IS AAOX3, NOT IN RESPIRATORY DISTRESS, V/S STABLE, HOOKED TO MONITOR, V/S STABLE, KEPT RESTED AND COMFORTABLE.
--- NOTE | 2018-08-20 22:15 | NUR ---
SEEN AND EXAMINED BY DR. REESE.
[2018-08-20 22:33] LABS: HEMATOCRIT 32 % (33-45); LYMPHOCYTES % (AUTO) 4.3 % (20.0-44.0); MEAN CORPUSCULAR HGB CONC 31 g/dl (31.0-36.0); MEAN CORPUSCULAR VOLUME 92 fL (82-100); NEUTROPHILS % (AUTO) 89.3 % (43.0-81.0); PLATELET COUNT (AUTO) 95 /CMM (150-450); RED BLOOD CELL COUNT(AUTO) 3.46 MIL/uL (4.0-5.2); WHITE BLOOD COUNT (AUTO) 22.5 K/uL (4.3-11.0)
[2018-08-20 22:34] LABS: BASOPHILS # (AUTO) 0.1 /CMM (0.0-0.2); BASOPHILS % (AUTO) 0.3 % (0.0-2.0); EOSINOPHILS % (AUTO) 0.1 % (0.0-6.0); MONOCYTES # (AUTO) 1.4 /CMM (0.1-1.30); NEUTROPHILS # (AUTO) 20.1 /CMM (1.8-8.9)
--- NOTE | 2018-08-20 22:35 | NUR ---
PT LABS DRAWNED AND SENT TO LAB.
[2018-08-20 22:41] LABS: CALCIUM, SERUM 7.3 mg/dL (8.5-10.1); CREATININE 3.8 mg/dL (0.6-1.3); POTASSIUM 4.8 mmol/L (3.5-5.1)
[2018-08-20 22:47] LABS: BILIRUBIN,DIRECT 0.1 mg/dL (0.0-0.2); BILIRUBIN,TOTAL 0.2 mg/dL (0.2-1.0)
[2018-08-20 22:51] LABS: ALBUMIN 1.1 g/dL (3.4-5.0)
--- NOTE | 2018-08-20 23:07 | NUR ---
URINAL GIVEN BUT UNABLE TO GIVE URINE SPECIMEN.
--- NOTE | 2018-08-20 23:13 | NUR ---
PT IS WHEELED TO CT SCAN VIA [facility].
--- NOTE | 2018-08-20 23:36 | NUR ---
URINE SPECIMEN COLLECTED VIA STRAIGHT CATH AND SENT TO LAB.
[2018-08-20 23:47] LABS: APPEARANCE,URINE Slightly Cloudy (CLEAR); BILIRUBIN,URINE Negative (NEGATIVE); BLOOD, URINE Negative Ery/uL (NEGATIVE); COLOR,URINE Yellow (YELLOW); KETONES,URINE Negative (NEGATIVE); LEUKOCYTE ESTERASE ,URINE Negative (NEGATIVE); NITRITE, URINE Negative (NEGATIVE); PH,URINE 8.5 (5.0-8.0); PROTEIN,URINE 100 mg/dl (NEGATIVE); UGLUCOSE Negative (NEGATIVE); UROBILINOGEN,URINE 0.2 EU/dL (0.2)
--- NOTE | 2018-08-21 | NUR ---
REPORT GIVEN TO MIGUEL LOCKWOOD FOR REBECCA.
--- NOTE | 2018-08-21 | NUR ---
REPORT REC'D FROM SUNITHA ELMORE RN .
[2018-08-21 00:02] LABS: BACTERIA,URINE Few /HPF (None Seen); RBC,URINE 0-2 /HPF (0-2); SQUAMOUS EPITHELIAL CELL,UR Few /HPF (None Seen); URINE AMORPHOUS PHOSPHATES Few /HPF (None Seen); WBC,URINE 0-2 /HPF (0-3)
[2018-08-21 00:55] LABS: BAND % (MANUAL) 6 % (0.0-5.0); LYMPHOCYTES % (MANUAL) 2 % (16-48); MONOCYTES % (MANUAL) 5 % (0-11.0); NEUTROPHILS % (MANUAL) 87 (42-76)
[2018-08-21] MEDS ORDERED: CIPROFLOXACIN IV RTU 400 MG in PREMIX 1 EA IV SCH (01:00)
[2018-08-21] MEDS ORDERED: ASPIRIN 325 MG TABLET PO ONE (01:00)
[2018-08-21] MEDS ORDERED: FLAGYL/NS RTU 500 MG/100 ML PIGGYBACK IV ONE (01:00)
[2018-08-21] MEDS ORDERED: METRONIDAZOLE 500MG/ NS 100ML 100 ML IV ONE (01:20)
[2018-08-21] MEDS ORDERED: CIPROFLOXACIN IV RTU 200 ML IV ONE (01:20)
[2018-08-21] MEDS ORDERED: ASPIRIN 325 MG TABLET ONE (01:20)
--- NOTE | 2018-08-21 01:35 | NUR ---
PT REC'D MEDICATION ORDERED.
[2018-08-21] MEDS ORDERED: ASPI-1169 PO (01:39)
[2018-08-21] MEDS ORDERED: CRAN450C PO (01:39)
[2018-08-21] MEDS ORDERED: HYDR-4384 PO (01:39)
[2018-08-21] MEDS ORDERED: ALBU2.5V38 IH (01:39)
[2018-08-21] MEDS ORDERED: FAMO-131 PO (01:39)
[2018-08-21] MEDS ORDERED: FURO-145 PO (01:39)
[2018-08-21] MEDS ORDERED: POTA20TA83 PO (01:39)
--- NOTE | 2018-08-21 01:40 | NUR ---
REPORT GIVEN TO MIGUEL NICHOLS. ENDORSED CIPRO IVPB TO MIGUEL NICHOLS .
[2018-08-21 02:40] VITALS: BP 151/55
[2018-08-21] MEDS ORDERED: ACETAMINOPHEN 325 MG TABLET PO PRN ×2 (03:00→09:00)
[2018-08-21] MEDS ORDERED: IV D5/0.45 NACL 1,000 ML IV PRN (03:00)
--- NOTE | 2018-08-21 03:07 | NUR ---
FRONT END UI DEVELOPER NOTES RECEIVED PT FROM ER NURSE VIA DARRYL. ON NASAL CANNULA 2LPM SATURATING WELL. ON TELE MONITOR SR. IV ACCESS LEFT HAND G 22 PATENT AND INTACT. RUDY CATH AT THE RIGHT CHEST WALL NO BLEEDING NOTED. HEAD OF BED ELEVATED. SIDE RAILS UP. CALL LIGHT WITHIN REACH. BED ALARM ON. WILL CONTINUE TO MONITOR PT CLOSELY.
--- NOTE | 2018-08-21 03:08 | NUR ---
HOUSEKEEPING AID NOTES UNABLE TO COLLECT STOOL FOR C.DIFF. HEALTH TEACHING DONE REGARDING NOTIFYING RN IF SHE HAD BOWEL MOVEMENT.
[2018-08-21 04:00] VITALS: BP 106/50
--- NOTE | 2018-08-21 06:42 | NUR ---
MALTED MILK SUPERVISOR NOTES NO ACUTE CHANGES NOTED DURING THE SHIFT. PROVIDED COMFORT AND SAFETY. DUE MEDS GIVEN. ENDORSE CDIFF STOOL COLLECTION. WILL ENDORSE TO THE AM NURSE FOR CONTINUITY OF CARE.
--- NOTE | 2018-08-21 07:00 | NUR ---
SENIOR BOOKKEEPER OPENING NOTES RECEIVED PT IN BED, C/O PAIN IN ABD. ON TELE SR 66. O2 WNL ON 2L NC. IV FLUIDS RUNNING VIA L HAND IV SITE. NO S/SX INFECTION. RUDY CATH NOTED RCW. BED IN LOCKED/LOWEST POSITION. CALL LIGHT IN REACH. WILL CONT TO MONITOR.
[2018-08-21 08:00] VITALS: BP 112/46
[2018-08-21 08:12] LABS: CREATININE 4.1 mg/dL (0.6-1.3); MAGNESIUM 3.5 mg/dL (1.8-2.4); POTASSIUM 4.9 mmol/L (3.5-5.1)
[2018-08-21 08:15] LABS: BASOPHILS % (AUTO) 0.2 % (0.0-2.0); EOSINOPHILS % (AUTO) 0.5 % (0.0-6.0); HEMATOCRIT 32 % (33-45); HEMOGLOBIN 10.4 g/dL (11.5-14.8); LYMPHOCYTES % (AUTO) 4.8 % (20.0-44.0); MEAN CORPUSCULAR HGB CONC 32 g/dl (31.0-36.0); MEAN CORPUSCULAR VOLUME 90 fL (82-100); MONOCYTES # (AUTO) 1.3 /CMM (0.1-1.30); NEUTROPHILS # (AUTO) 18.9 /CMM (1.8-8.9); NEUTROPHILS % (AUTO) 88.5 % (43.0-81.0); PLATELET COUNT (AUTO) 70 /CMM (150-450); WHITE BLOOD COUNT (AUTO) 21.4 K/uL (4.3-11.0)
[2018-08-21] MEDS: VANCOMYCIN HCL 125 MG/2.5 ML ORAL.SUSP PO SCH ×4 (08:48→23:03)
[2018-08-21 09:19] LABS: LYMPHOCYTES % (MANUAL) 5 % (16-48); MONOCYTES % (MANUAL) 10 % (0-11.0); NEUTROPHILS % (MANUAL) 85 (42-76)
[2018-08-21] MEDS: ASPIRIN 81 MG TAB.CHEW PO SCH (09:25)
[2018-08-21] MEDS: FOLIC ACID 1 MG TABLET PO SCH (09:26)
[2018-08-21] MEDS: FERROUS SULFATE (325 MG) 325 MG/TAB TABLET PO SCH ×2 (09:26→17:14)
[2018-08-21] MEDS: CARVEDILOL 12.5 MG TABLET PO SCH ×2 (09:26→21:00)
[2018-08-21] MEDS: IV D5/ 0.9% NACL 1,000 ML IV PRN (10:24)
[2018-08-21 12:00] VITALS: BP 112/49
[2018-08-21] MEDS: HYDROCODONE/APAP 5/325MG 1 EACH TABLET PO PRN (12:13)
[2018-08-21] MEDS: hydrALAZINE HCL 50 MG TABLET PO SCH ×2 (13:00→21:00)
[2018-08-21 16:00] VITALS: BP 89/42
[2018-08-21] MEDS: PANTOPRAZOLE 40 MG TABLET.DR PO SCH (17:14)
--- NOTE | 2018-08-21 19:02 | NUR ---
MANUFACTURER AGENT CLOSING NOTES ENDORSED PT TO PM SHIFT FOR REBECCA. PT RESTING IN BED, EXPRESSING: "TIRED FROM DIALYSIS.". PT ON 2L NC. O2 SAT WNL. NO SOB NOTED. ISOLATION PRECAUTIONS MAINTAINED TO R/O CDIFF. BED IN LOCKED/LOWEST POSITION. CALL LIGHT IN REACH. ALL NEEDS ATTENDED TO.
[2018-08-21 20:00] VITALS: BP 98/47
[2018-08-21] MEDS: ALBUTEROL FS 2.5 MG/3 ML VIAL.NEB IH SCH (20:04)
[2018-08-21] MEDS: ATORVASTATIN 40 MG TABLET PO SCH (21:37)
[2018-08-22] VITALS (8 sets, daily range): BP systolic 57–128; BP diastolic 37–70
[2018-08-22] MEDS: ALBUTEROL FS 2.5 MG/3 ML VIAL.NEB IH SCH ×4 (00:57→19:22)
[2018-08-22] MEDS: HYDROCODONE/APAP 5/325MG 1 EACH TABLET PO PRN ×4 (00:59→15:49)
[2018-08-22] MEDS: hydrALAZINE HCL 50 MG TABLET PO SCH ×3 (05:00→21:00)
[2018-08-22] MEDS: VANCOMYCIN HCL 125 MG/2.5 ML ORAL.SUSP PO SCH ×3 (05:48→17:27)
[2018-08-22] MEDS: IV D5/ 0.9% NACL 1,000 ML IV PRN (06:06)
[2018-08-22] MEDS: PANTOPRAZOLE 40 MG TABLET.DR PO SCH ×2 (07:03→15:49)
--- NOTE | 2018-08-22 07:10 | NUR ---
WOUND CARE CONSULT WOUND CARE RECEIVED CONSULT FOR PERINEAL REDNESS. WOUND CARE WILL DEFER CONSULT AND ALL TREATMENT PLANS TO PLASTIC SURGICAL TEAM WHO ARE CURRENTLY FOLLOWING THIS PATIENT. PATIENT WITH DEREJE AT 16, ALL PRESSURE ULCER PREVENTION MEASURES ARE NOTED TO BE IN PLACE. WILL SEE PRN.
[2018-08-22 07:27] LABS: BASOPHILS # (AUTO) 0.1 /CMM (0.0-0.2); BASOPHILS % (AUTO) 0.3 % (0.0-2.0); EOSINOPHILS % (AUTO) 0.4 % (0.0-6.0); HEMATOCRIT 30 % (33-45); HEMOGLOBIN 9.6 g/dL (11.5-14.8); LYMPHOCYTES # (AUTO) 0.9 /CMM (0.8-4.8); LYMPHOCYTES % (AUTO) 5.5 % (20.0-44.0); MEAN CORPUSCULAR HGB CONC 32 g/dl (31.0-36.0); MEAN CORPUSCULAR VOLUME 91 fL (82-100); MONOCYTES # (AUTO) 1.3 /CMM (0.1-1.30); MONOCYTES % (AUTO) 8.1 % (2.0-12.0); NEUTROPHILS # (AUTO) 13.4 /CMM (1.8-8.9); NEUTROPHILS % (AUTO) 85.7 % (43.0-81.0); PLATELET COUNT (AUTO) 53 /CMM (150-450); RED BLOOD CELL COUNT(AUTO) 3.32 MIL/uL (4.0-5.2); WHITE BLOOD COUNT (AUTO) 15.6 K/uL (4.3-11.0)
--- NOTE | 2018-08-22 07:30 | NUR ---
MEDICATED FOR ABDOMENAL PAIN WITH GOOD RESULTS.
[2018-08-22 07:33] LABS: CREATININE 3.2 mg/dL (0.6-1.3); POTASSIUM 4.1 mmol/L (3.5-5.1)
[2018-08-22] MEDS ORDERED: IV NS 0.9% 500 ML IV ONE (08:30)
[2018-08-22] MEDS: CARVEDILOL 12.5 MG TABLET PO SCH ×2 (08:38→21:00)
[2018-08-22] MEDS: Z GUARD REMEDY 4 OZ OINT TP SCH ×2 (08:38→21:29)
[2018-08-22] MEDS: FERROUS SULFATE (325 MG) 325 MG/TAB TABLET PO SCH ×2 (08:40→16:58)
[2018-08-22] MEDS: FOLIC ACID 1 MG TABLET PO SCH (08:40)
[2018-08-22] MEDS: ASPIRIN 81 MG TAB.CHEW PO SCH (08:40)
[2018-08-22] MEDS ORDERED: LEVOFLOXACIN 500 MG /D5W 100ML 500 MG in PREMIX 1 EA IV ONE (09:00)
[2018-08-22] MEDS ORDERED: METRONIDAZOLE 500MG/ NS 100ML 500 MG in PREMIX 1 EA IV SCH (09:00)
[2018-08-22 09:03] LABS: BAND % (MANUAL) 1 % (0.0-5.0); EOSINOPHILS % (MANUAL) 1 % (0-4); LYMPHOCYTES % (MANUAL) 8 % (16-48); MONOCYTES % (MANUAL) 8 % (0-11.0); NEUTROPHILS % (MANUAL) 82 (42-76)
--- NOTE | 2018-08-22 12:45 | NUR ---
RN NOTE AT 0815 DR MATTHEW NOTIFIED ABOUT BP 76/47, BOLUS ORDERED AND GIVEN, DR OPST CONSULT ORDERED AND DR POST SAW PT SAID TO CONTINUE WHAT DR MATTHEW ORDERED. PT CO PAIN IN HER STOMACH 01/08. HAD BMX2, THIS MORNING. DR MATTHEW NOTIFIED ABOUT LACTIC ACID 2.4. NO NEW ORDERS. LATER ON RECEIVED CALL FROM LAB THAT SHE IS POSITIVE FOR C DIFF. DR MATTHEW NOTIFIED AND HE ORDERED TO D/C FLAGYL AND LEVOFLOXACIN. WILL CARRY OUT. AND CONTINUE TO MONITOR THE PT.
--- NOTE | 2018-08-22 20:00 | NUR ---
RN INITIAL NOTES RECEIVED PT IN BED. ON TELE SR HR 83. O2 WNL ON 2L NC. IV FLUIDS RUNNING VIA L HAND IV SITE. NO S/SX INFECTION. RUDY CATH NOTED RCW. BED IN LOCKED/LOWEST POSITION. CALL LIGHT IN REACH. WILL CONT TO MONITOR.
[2018-08-22] MEDS: ATORVASTATIN 40 MG TABLET PO SCH (21:27)
[2018-08-23] VITALS (7 sets, daily range): BP systolic 104–147; BP diastolic 48–64
[2018-08-23] MEDS: VANCOMYCIN HCL 125 MG/2.5 ML ORAL.SUSP PO SCH ×5 (00:40→23:02)
[2018-08-23] MEDS: ALBUTEROL FS 2.5 MG/3 ML VIAL.NEB IH SCH ×4 (01:13→19:30)
[2018-08-23] MEDS: HYDROCODONE/APAP 5/325MG 1 EACH TABLET PO PRN ×2 (01:55→18:15)
[2018-08-23] MEDS: hydrALAZINE HCL 50 MG TABLET PO SCH ×3 (05:00→21:00)
--- NOTE | 2018-08-23 07:05 | NUR ---
RN CLOSING NOTES PT RESTING IN BED, PT ON 2L NC. O2 SAT WNL. NO SOB NOTED. ISOLATION PRECAUTIONS MAINTAINED TO R/O CDIFF. BED IN LOCKED/LOWEST POSITION. CALL LIGHT IN REACH. ALL NEEDS ATTENDED TO. WILL ENDORSE TO AM RN.
[2018-08-23 07:09] LABS: BASOPHILS % (AUTO) 0.3 % (0.0-2.0); EOSINOPHILS % (AUTO) 1.7 % (0.0-6.0); HEMATOCRIT 32 % (33-45); HEMOGLOBIN 10.1 g/dL (11.5-14.8); LYMPHOCYTES # (AUTO) 0.9 /CMM (0.8-4.8); MEAN CORPUSCULAR HGB CONC 32 g/dl (31.0-36.0); MEAN CORPUSCULAR VOLUME 93 fL (82-100); MONOCYTES # (AUTO) 1.2 /CMM (0.1-1.30); MONOCYTES % (AUTO) 12.1 % (2.0-12.0); NEUTROPHILS # (AUTO) 7.9 /CMM (1.8-8.9); NEUTROPHILS % (AUTO) 76.9 % (43.0-81.0); RED BLOOD CELL COUNT(AUTO) 3.46 MIL/uL (4.0-5.2); WHITE BLOOD COUNT (AUTO) 10.2 K/uL (4.3-11.0)
[2018-08-23 07:22] LABS: PLATELET COUNT (AUTO) 44 /CMM (150-450)
[2018-08-23 07:48] LABS: BILIRUBIN,TOTAL 0.4 mg/dL (0.2-1.0); CALCIUM, SERUM 7.3 mg/dL (8.5-10.1); CREATININE 3.6 mg/dL (0.6-1.3); MAGNESIUM 2.4 mg/dL (1.8-2.4); PHOSPHORUS 3.6 mg/dL (2.5-4.9); POTASSIUM 4.3 mmol/L (3.5-5.1); TOTAL PROTEIN, SERUM 3.6 g/dL (6.4-8.2)
--- NOTE | 2018-08-23 07:50 | NUR ---
TELEVISION PRESENTER NOTES PATIENT RECEIVED RESTING INSIDE ROOM. AWAKE, ALERT AND ORIENTED, VERBALLY RESPONSIVE AND RESPONDS TO VERBAL AND TACTILE STIMULI. BREATHING EVEN AND UNLABORED. DENIES ANY PAIN OR DISCOMFORT AT THIS TIME. NO CHANGES IN LOC NOTED. MAINTAINED ISOLATION PRECAUTIONS 2 C-DIFF. WITH REPORT FROM THE LAB OF LOW PLATELET COUNT OF 44. DR. MATTHEW PRESENT AT UNIT AND MADE AWARE, NO NEW ORDERS AT THIS TIME. PATIENT MADE AWARE AND VERBALIZED UNDERSTANDING. WILL CONTINUE TO MONITOR. BED LOCKED AND IN LOW POSITION. BILATERAL UPPER SIDE RAILS UP AND LOCKED. CALL LIGHT WITHIN EASY REACH
[2018-08-23] MEDS: PANTOPRAZOLE 40 MG TABLET.DR PO SCH ×2 (09:04→15:35)
[2018-08-23] MEDS: CARVEDILOL 12.5 MG TABLET PO SCH ×2 (09:04→21:00)
[2018-08-23] MEDS: FOLIC ACID 1 MG TABLET PO SCH (09:04)
[2018-08-23] MEDS: FERROUS SULFATE (325 MG) 325 MG/TAB TABLET PO SCH ×2 (09:04→17:43)
[2018-08-23] MEDS: Z GUARD REMEDY 4 OZ OINT TP SCH ×2 (09:08→21:36)
[2018-08-23] MEDS: ASPIRIN 81 MG TAB.CHEW PO SCH (09:12)
[2018-08-23 10:44] LABS: BAND % (MANUAL) 2 % (0.0-5.0); EOSINOPHILS % (MANUAL) 1 % (0-4); LYMPHOCYTES % (MANUAL) 3 % (16-48); MONOCYTES % (MANUAL) 4 % (0-11.0); NEUTROPHILS % (MANUAL) 90 (42-76)
--- NOTE | 2018-08-23 12:30 | NUR ---
ROOMING HOUSE INSPECTOR NOTES STARTED HD AT 1215. TO HOLD BP MEDICATIONS PER DIALYSIS NURSE. PATIENT CALM AND RELAXED. NO CHANGES IN LOC NOTED AT THIS TIME. WILL CONTINUE TO MONITOR
--- NOTE | 2018-08-23 15:20 | NUR ---
MANAGER SOURCING NOTES S/P HD AT 1515. DIALYSIS X 3 HOURS WITH 750 CC OUT. PATIENT TOLERATED PROCEDURE WELL. NO ACUTE DISTRESS. WILL CONTINUE TO MONITOR
--- NOTE | 2018-08-23 18:52 | NUR ---
BINGO CALLER NOTES PATIENT RESTING INSIDE ROOM. SLEEPING, EASILY AROUSABLE THROUGH VERBAL AND TACTILE STIMULI. BREATHING EVEN AND UNLABORED. NO ACUTE DISTRESS AT THIS TIME. DENIES ANY PAIN OR DISCOMFORT. NO CHANGES IN LOC NOTED. PATIENT KEPT CLEAN, DRY AND COMFORTABLE. ALL NURSING NEEDS ATTENDED. WILL ENDORSE TO INCOMING SHIFT FOR REBECCA. BED LOCKED AND IN LOW POSITION. BILATERAL UPPER SIDE RAILS UP AND LOCKED. CALL LIGHT WITHIN EASY REACH
[2018-08-23] MEDS: ATORVASTATIN 40 MG TABLET PO SCH (21:38)
[2018-08-24] VITALS (7 sets, daily range): BP systolic 102–151; BP diastolic 58–66
[2018-08-24] MEDS: ALBUTEROL FS 2.5 MG/3 ML VIAL.NEB IH SCH ×4 (01:40→19:29)
[2018-08-24] MEDS: VANCOMYCIN HCL 125 MG/2.5 ML ORAL.SUSP PO SCH ×4 (05:33→23:59)
[2018-08-24] MEDS: hydrALAZINE HCL 50 MG TABLET PO SCH ×3 (05:34→20:29)
[2018-08-24 07:48] LABS: CALCIUM, SERUM 7.4 mg/dL (8.5-10.1); CREATININE 2.8 mg/dL (0.6-1.3); POTASSIUM 4.2 mmol/L (3.5-5.1)
[2018-08-24] MEDS: HYDROCODONE/APAP 5/325MG 1 EACH TABLET PO PRN ×3 (08:13→20:28)
[2018-08-24] MEDS: ASPIRIN 81 MG TAB.CHEW PO SCH (08:13)
[2018-08-24] MEDS: FERROUS SULFATE (325 MG) 325 MG/TAB TABLET PO SCH ×2 (08:13→17:39)
[2018-08-24] MEDS: FOLIC ACID 1 MG TABLET PO SCH (08:13)
[2018-08-24] MEDS: PANTOPRAZOLE 40 MG TABLET.DR PO SCH ×2 (08:13→17:39)
[2018-08-24] MEDS: Z GUARD REMEDY 4 OZ OINT TP SCH ×2 (08:14→20:29)
[2018-08-24] MEDS: CARVEDILOL 12.5 MG TABLET PO SCH ×2 (08:34→20:27)
[2018-08-24] MEDS ORDERED: LEVOFLOXACIN 250 MG /D5W 50 ML 250 MG in PREMIX 1 EA IV SCH (09:00)
--- NOTE | 2018-08-24 10:19 | NUR ---
DR. MATTHEW NOTIFIED REGARDING BP DISCREPANCIES,WILL TAKE BP ONLY LUE,PER MD POSSIBLE D/C TO SNF POST CBC,CM MADE AWARE.
[2018-08-24 10:34] LABS: BASOPHILS % (AUTO) 0.3 % (0.0-2.0); EOSINOPHILS % (AUTO) 0.3 % (0.0-6.0); HEMATOCRIT 25 % (33-45); HEMOGLOBIN 7.8 g/dL (11.5-14.8); LYMPHOCYTES # (AUTO) 0.6 /CMM (0.8-4.8); LYMPHOCYTES % (AUTO) 9.7 % (20.0-44.0); MEAN CORPUSCULAR HGB CONC 31 g/dl (31.0-36.0); MEAN CORPUSCULAR VOLUME 93 fL (82-100); MONOCYTES % (AUTO) 16.9 % (2.0-12.0); NEUTROPHILS # (AUTO) 4.1 /CMM (1.8-8.9); NEUTROPHILS % (AUTO) 72.8 % (43.0-81.0); RED BLOOD CELL COUNT(AUTO) 2.68 MIL/uL (4.0-5.2); WHITE BLOOD COUNT (AUTO) 5.7 K/uL (4.3-11.0)
[2018-08-24 10:38] LABS: PLATELET COUNT (AUTO) 37 /CMM (150-450)
--- NOTE | 2018-08-24 11:54 | NUR ---
CBC RESULT RE;AYED TO DR. MATTHEW NO NEW ORDERS.
[2018-08-24 12:02] LABS: LYMPHOCYTES % (MANUAL) 11 % (16-48); MONOCYTES % (MANUAL) 15 % (0-11.0); NEUTROPHILS % (MANUAL) 74 (42-76)
[2018-08-24 16:21] LABS: HEMOGLOBIN 9.3 g/dL (11.5-14.8); MONOCYTES # (AUTO) 0.9 /CMM (0.1-1.30); NEUTROPHILS # (AUTO) 4.5 /CMM (1.8-8.9); WHITE BLOOD COUNT (AUTO) 6.2 K/uL (4.3-11.0)
[2018-08-24 16:33] LABS: BASOPHILS % (AUTO) 0.2 % (0.0-2.0); EOSINOPHILS % (AUTO) 0.8 % (0.0-6.0); HEMATOCRIT 29 % (33-45); LYMPHOCYTES # (AUTO) 0.8 /CMM (0.8-4.8); LYMPHOCYTES % (AUTO) 12.6 % (20.0-44.0); MEAN CORPUSCULAR HGB CONC 32 g/dl (31.0-36.0); MEAN CORPUSCULAR VOLUME 90 fL (82-100); MONOCYTES % (AUTO) 13.8 % (2.0-12.0); NEUTROPHILS % (AUTO) 72.6 % (43.0-81.0); RED BLOOD CELL COUNT(AUTO) 3.22 MIL/uL (4.0-5.2)
[2018-08-24 17:44] LABS: PLATELET COUNT (AUTO) 41 /CMM (150-450)
[2018-08-24 17:48] LABS: BAND % (MANUAL) 12 % (0.0-5.0); EOSINOPHILS % (MANUAL) 1 % (0-4); LYMPHOCYTES % (MANUAL) 10 % (16-48); MONOCYTES % (MANUAL) 10 % (0-11.0); NEUTROPHILS % (MANUAL) 66 (42-76); REACTIVE LYMPHOCYTES 1 % (0-0)
--- NOTE | 2018-08-24 19:44 | NUR ---
RN CLOSING NOTE PATINENT ALERT AND IN BED, IV PATENT AND INTACT. BLOOD PRESSURE LOW THIS AM AND MEDICATIONS HELD. DR MATTHEW AWARE, ONLY TAKE BP ON LEFT EXTREMJITY. DR MATTHEW IS AWARE OF PLATETT COUNT 37,000 NO NEW ORDERS, CONTINUE HOSPITALIZATION. FAMILY AT BEDSIDE. SAFETY MEASURES IN PLACE. CONT TO MONITOR.
--- NOTE | 2018-08-24 20:00 | NUR ---
RN INITIAL NOTES RECEIVED PT IN BED. FAMILY AT BED SIDE. PT O2 WNL ON 2L NC. L HAND IV SITE, NO S/SX INFECTION. RUDY GARDNER NOTED RCW. BED IN LOCKED/LOWEST POSITION. CALL LIGHT IN REACH. ISOLATION PRECAUTION OBSERVED. WILL CONT TO MONITOR.
[2018-08-24] MEDS: ATORVASTATIN 40 MG TABLET PO SCH (21:36)
[2018-08-25] MEDS: ALBUTEROL FS 2.5 MG/3 ML VIAL.NEB IH SCH ×3 (01:14→14:02)
[2018-08-25 04:00] VITALS: BP 130/62
[2018-08-25] MEDS: VANCOMYCIN HCL 125 MG/2.5 ML ORAL.SUSP PO SCH ×3 (05:31→17:09)
[2018-08-25] MEDS: hydrALAZINE HCL 50 MG TABLET PO SCH ×2 (05:32→12:11)
[2018-08-25 05:51] VITALS: BP 130/62
--- NOTE | 2018-08-25 06:39 | NUR ---
RN CLOSING NOTES PT RESTING IN BED, PT ON 2L NC. O2 SAT WNL. NO SOB NOTED. ISOLATION PRECAUTIONS MAINTAINED. BED IN LOCKED/LOWEST POSITION. CALL LIGHT IN REACH. ALL NEEDS ATTENDED TO. WILL ENDORSE TO AM RN.
[2018-08-25] MEDS: PANTOPRAZOLE 40 MG TABLET.DR PO SCH ×2 (07:30→16:30)
--- NOTE | 2018-08-25 07:30 | NUR ---
MS RN Opening Notes Patient awake, resting in bed. Alert and oriented x3, Guamanian speaking, able to make needs known. No complaints of pain at this time. Isolation precautions maintained. Respirations even and unlabored on 3 L oxygen via nasal cannula, no acute distress noted. Left hand 20 gauge peripheral IV intact, patent and saline locked. Port-a-cath site to the right chest wall, intact, patent with clean, dry and intact dressing in place. Updated patient on current plan of care and safety measures. Safety and fall precautions in place: bed in lowest and locked position, side rails up x2, bed alarm on, call light and personal possessions within reach. Patient verbalized understanding. Will continue to monitor and intervene as needed.
[2018-08-25 07:50] LABS: BASOPHILS % (AUTO) 0.1 % (0.0-2.0); EOSINOPHILS % (AUTO) 0.7 % (0.0-6.0); HEMATOCRIT 27 % (33-45); HEMOGLOBIN 8.9 g/dL (11.5-14.8); LYMPHOCYTES # (AUTO) 0.7 /CMM (0.8-4.8); LYMPHOCYTES % (AUTO) 10.4 % (20.0-44.0); MEAN CORPUSCULAR HGB CONC 33 g/dl (31.0-36.0); MEAN CORPUSCULAR VOLUME 91 fL (82-100); MONOCYTES % (AUTO) 15.1 % (2.0-12.0); NEUTROPHILS # (AUTO) 5.1 /CMM (1.8-8.9); NEUTROPHILS % (AUTO) 73.7 % (43.0-81.0); RED BLOOD CELL COUNT(AUTO) 2.99 MIL/uL (4.0-5.2); WHITE BLOOD COUNT (AUTO) 6.9 K/uL (4.3-11.0)
[2018-08-25 08:00] VITALS: BP 90/47
[2018-08-25 08:14] LABS: PLATELET COUNT (AUTO) 39 /CMM (150-450)
[2018-08-25 08:19] LABS: CALCIUM, SERUM 7.2 mg/dL (8.5-10.1); CREATININE 3.3 mg/dL (0.6-1.3)
[2018-08-25] MEDS: FERROUS SULFATE (325 MG) 325 MG/TAB TABLET PO SCH ×2 (08:58→17:00)
[2018-08-25] MEDS: FOLIC ACID 1 MG TABLET PO SCH (08:58)
[2018-08-25] MEDS: ASPIRIN 81 MG TAB.CHEW PO SCH (08:58)
[2018-08-25] MEDS: CARVEDILOL 12.5 MG TABLET PO SCH ×2 (09:00→09:28)
[2018-08-25] MEDS: Z GUARD REMEDY 4 OZ OINT TP SCH (09:02)
[2018-08-25 09:05] LABS: BAND % (MANUAL) 7 % (0.0-5.0); LYMPHOCYTES % (MANUAL) 9 % (16-48); MONOCYTES % (MANUAL) 13 % (0-11.0); NEUTROPHILS % (MANUAL) 71 (42-76)
[2018-08-25 09:27] VITALS: BP 154/65
--- NOTE | 2018-08-25 10:00 | NUR ---
Per frederick Llanes to discharge to SNF. Aware of recent bowel movement activity and platelet levels.
[2018-08-25] MEDS: HYDROCODONE/APAP 5/325MG 1 EACH TABLET PO PRN (12:12)
[2018-08-25 12:30] VITALS: BP 157/67
[2018-08-25 16:00] VITALS: BP 127/53
--- NOTE | 2018-08-25 17:45 | NUR ---
MS drencher Notes Patient awake, resting in bed. Alert and oriented x3, Upper Sorbian speaking, able to make needs known. No complaints of pain at this time. Isolation precautions maintained. Respirations even and unlabored on 3 L oxygen via nasal cannula, no acute distress noted. Left hand 20 gauge peripheral IV catheter removed with tip intact, no redness, swelling or bleeding of the area noted. Port-a-cath site to the right chest wall, intact, patent with clean, dry and intact dressing in place. Skin assessment completed, photos placed in chart. Per nephrology team, inpatient HD to be cancelled today for discharge, MD aware. Outpatient HD set-up with facility for tomorrow per shoe parts caser. Family notified and aware of transfer plans. Personal belongings discharged with patient (no nightgown found in possession, family took home) acknowledged and verified via signature on form. Dentures (upper and lower) discharged with patient. Discharge instructions and Exitcare provided to patient (and given to transport for transfer to facility) acknowledged and verified via signature on discharge form. Copies placed in chart. Patient transferred in stable condition. Patient discharged to [facility], room 123, at via EMS transport, report given to tamra Torres RN.
== END 2018-08-25 17:50 | DRG 371 ==
LOC: ER 21:17 → TELE1 08-21 01:37 → MEDSG1 08-24 10:17
PROVIDERS: ADMIT Internal Medicine; ATTEND Internal Medicine
PROC: 5A1D70Z Performance of Urinary Filtration, Intermittent, Less than 6 Hours Per Day (ICD-10-PCS; principal; 2018-08-21)
PROC: 5A1D70Z Performance of Urinary Filtration, Intermittent, Less than 6 Hours Per Day (ICD-10-PCS; 2018-08-23)
PROC: 5A1D70Z Performance of Urinary Filtration, Intermittent, Less than 6 Hours Per Day (ICD-10-PCS; 2018-08-25)
DX: A04.72 Enterocolitis due to Clostridium difficile, not specified as recurrent (principal); N18.6 End stage renal disease; E87.1 Hypo-osmolality and hyponatremia; I13.2 Hypertensive heart and chronic kidney disease with heart failure and with stage 5 chronic kidney disease, or end stage renal disease; E87.2 Acidosis; R18.8 Other ascites; J44.9 Chronic obstructive pulmonary disease, unspecified; K21.9 Gastro-esophageal reflux disease without esophagitis; Z99.2 Dependence on renal dialysis; E11.22 Type 2 diabetes mellitus with diabetic chronic kidney disease; D69.6 Thrombocytopenia, unspecified; E86.0 Dehydration; E78.5 Hyperlipidemia, unspecified; D63.1 Anemia in chronic kidney disease; L98.9 Disorder of the skin and subcutaneous tissue, unspecified; S71.101A Unspecified open wound, right thigh, initial encounter; I50.9 Heart failure, unspecified; N28.89 Other specified disorders of kidney and ureter; Z87.440 Personal history of urinary (tract) infections; Z87.11 Personal history of peptic ulcer disease; Z87.891 Personal history of nicotine dependence
CPT/HCPCS: 36415; 76770-TC; 80048-TC; 80053-TC; 80076-TC; 81000-TC; 83605-TC; 83690-TC; 83735-TC; 84100-TC; 84484-TC; 85025-TC; 85730-TC; 86022; 87040-TC; 87081-TC; 89055; 90935-TC; 94799-TC; A4216; G0378; J0744; J1956; J3490; J7030; J7040; J7042